=== PATIENT | female | born 1995 | race Caucasian/White ===

== ENCOUNTER 2017-11-25 13:20 | Emergency (ER) | payer OTHER, MEDICAID ==
[~2017-11-25] VITALS: Ht 172.7 cm; Wt 72.6 kg
[2017-11-25 14:03] LABS: ABSOLUTE BASOPHILS 0.1 thou/uL (0.0-0.2); ABSOLUTE EOSINOPHILS 0.1 thou/uL (0.0-0.7); ABSOLUTE LYMPHOCYTES 2.1 thou/uL (0.8-5.3); ABSOLUTE MONOCYTES 0.5 thou/uL (0.0-1.2); ABSOLUTE NEUTROPHILS 2.3 thou/uL (1.6-8.1); EOSINOPHILS 2.7 %; HEMATOCRIT 42.8 % (37.0-47.0); HEMOGLOBIN 14.3 gm/dL (12.0-15.0); LYMPHOCYTES 41.2 %; MCHC 33.5 g/dL (28.0-37.0); MCV 86.6 fL (80.0-100.0); MONOCYTES 10.3 %; MPV 9.6 fl. (7.2-11.1); NUCLEATED RBCS 0 /100WBC; PLATELET COUNT* 213 thou/uL (150-400); POLYS 44.8 %; RBC 4.94 mil/uL (4.20-5.00); RDW-CV 12.8 % (10.5-14.5); WBC 5.2 thou/uL (4.0-11.0)
[2017-11-25 14:07] LABS: CALCIUM 9.2 mg/dL (8.5-10.1); CREATININE 0.8 mg/dL (0.6-1.3); POTASSIUM 3.9 mmol/L (3.5-5.1)
[2017-11-25 14:12] LABS: ALBUMIN 4.1 g/dL (3.4-5.0); TOTAL BILIRUBIN 0.2 mg/dL (<0.1-1.0); TOTAL PROTEIN 7.8 g/dL (6.4-8.2)
[2017-11-25] MEDS ORDERED: AUGMENTIN 875-1 EACH PO (15:18)
[2017-11-25] MEDS ORDERED: DIPHENHIST50 MG PO (15:18)
[2017-11-25 15:19] LABS: URINE BILIRUBIN NEGATIVE (Negative); URINE BLOOD TRACE (Negative); URINE CLARITY CLEAR; URINE COLOR YELLOW; URINE GLUCOSE-RANDOM NEGATIVE (Negative); URINE KETONES NEGATIVE (Negative); URINE LEUKOCYTES-REFLEX NEGATIVE (Negative); URINE NITRITE-REFLEX NEGATIVE (Negative); URINE PROTEIN NEGATIVE (Negative); URINE UROBILINOGEN 0.2 E.U./dl (0.2-1.0)
[2017-11-25 15:37] VITALS: BP 99/58
== END 2017-11-25 15:38 | disposition home or self-care (01) ==
LOC: M.ERS 13:20
PROVIDERS: Emergency Medicine Emergency Medical Services
DX: H66.93 Otitis media, unspecified, bilateral (principal); R21 Rash and other nonspecific skin eruption

== ENCOUNTER → 2018-10-25 | Outpatient (CLI) | payer BC, MEDICAID ==
[~2018-10-25] MED LIST: AUGMENTIN 875-1 EACH PO; DIPHENHIST50 MG PO
--- NOTE | 2018-10-30 16:27 | 24HR ---
[place] [address] [employer] MONITOR REPORT Name: SANTOS DOVER Room: [facility]#: [id number] Admission: 10/25/18 Attend Phys: Samantha. AVANI Leary Discharge: Date of : [birth year] Date of Service: 10/30/18 1315 Report #: [id number] THIS REPORT FOR: //name// [facility] Test Date: 2018-10-30 Test Time: 13:15:04 Pat Name: SANTOS DOVER Department: Room: Gender: [employer]: : 1995 Requested By: Samantha. Yi Order Number: [id number] MD: Ramírez Sánchez Interpretive Statements 1. sinus rhythm with sinus bradycardia and tachycardia 2. occasional pac and pvc 3. no symptoms in diary Electronically Signed On 10-30-2018 16:27:37 CDT by Ramírez Sánchez [email or web address] <ELECTRONICALLY SIGNED> By: Ramírez Sánchez MD, [facility] 10/30/18 1627 1315 1315 Ramírez Sánchez MD, FACC /EPI
== END ==
LOC: M.CT 10-02 16:33 → M.CRD 09:32 → M.CT 10:00
DX: R00.2 Palpitations (principal); G43.109 Migraine with aura, not intractable, without status migrainosus; Z87.891 Personal history of nicotine dependence